=== PATIENT | female | born 1990 | race Caucasian/White ===

== ENCOUNTER 2017-07-13 14:49 | Emergency (ER) | payer OTHER ==
[~2017-07-13] VITALS: Ht 162.6 cm; Wt 53.0 kg
[2017-07-13 14:51] VITALS: BP 145/81; PULSE 75; RESP 18; TEMP 98; O2SAT 100
--- NOTE | 2017-07-13 15:19 | PD ---
Physical Exam Date Seen by Provider: Jul 13, 2017 Time Seen by Provider: 15:16 Narrative 26-year-old female with history of migraine presents to emergency Department with migraine since this morning. Patient sees a headache specialist and shawn is currently on verapamil and sumatriptan. Patient states she took her to sumatriptan 25 mg by mouth today without relief of her symptoms. Patient continues to be nauseous and having of pain of 8 out of 10. She denies any specific neurological symptoms. She denies visual changes. She denies . Last menstrual period was June 29. She is allergic to penicillin. Vital signs reviewed. Patient awaiting bed placement. Data Data Last Documented VS Vital Signs Date Time Temp Pulse Resp B/P (MAP) Pulse Ox O2 Delivery O2 Flow Rate FiO2 07/13/17 14:51 98.0 75 18 145/81 (102) 100 MDM Medical Record Reviewed: Yes Supervised Visit with TRICIA: Yes Condition: Stable Ken Weldon Jul 13, 2017 15:19
[2017-07-13] MEDS ORDERED: VITA10002 PO (15:42)
--- NOTE | 2017-07-13 15:42 | PD ---
Physical Exam Date Seen by Provider: Jul 13, 2017 Narrative Patient presents with a headache. Patient is sitting on the stretcher smiling as a nurse's starting her IV. She is in no distress. Data Data Last Documented VS Vital Signs Date Time Temp Pulse Resp B/P (MAP) Pulse Ox O2 Delivery O2 Flow Rate FiO2 07/13/17 14:51 98.0 75 18 145/81 (102) 100 Orders Orders Sumatriptan Inj (Imitrex Inj) (07/13/17 15:45) Sodium Chlor 0.9% 1000 Ml Inj (Ns 1000 M (07/13/17 15:45) Ondansetron Inj (Zofran Inj) (07/13/17 15:45) Iv Access Insert/Monitor (07/13/17 15:35) MDM Supervised Visit with TRICIA: Yes Narrative Course I, Dr. León, have reviewed the advance practice practitioner's documentation and am in agreement, met with the patient face to face, made the diagnosis, and the medical decision making was done by me. *My assessment and Findings: Well-appearing female with the chief complaint of a headache. Please see Shayna Willard's note for final diagnosis and disposition. Scripts No Active Prescriptions or Reported Meds Condition: Michelle Martin MD Jul 13, 2017 15:42
[2017-07-13] MEDS ORDERED: SUMAtriptan INJ 6 MG/0.5 ML VIAL SQ ONE (15:45)
[2017-07-13] MEDS ORDERED: ONDANSETRON HCL 4 MG/2 ML VIAL IV PUSH ONE (15:45)
[2017-07-13] MEDS ORDERED: SODIUM CHLOR 0.9% 1000 ML INJ 1,000 ML IV ONE (15:45)
--- NOTE | 2017-07-13 16:06 | PD ---
HPI Chief Complaint: Headache Time Seen by Provider: 15:27 Travel History International Travel<30 days: No Contact w/Intl Traveler<30days: No Traveled to known affect area: No History of Present Illness HPI Patient is a 26-year-old female presenting to the emergency evaluation of a migraine. Patient has history of chronic migraines and currently takes verapamil and sumatriptan as needed. She also reports taking 3-4000 mg of acetaminophen to abort the headache. She reports mild nausea, mild photophobia. She states she had dull headache yesterday but woke up at 5 AM this morning with increased pain over the left frontal and left eye. Headache presentation is consistent with her headaches in the past. She took 25 mg of sumatriptan at 5 AM and then again at 12:30. She currently rates the pain a 7 out of 10 and states it's throbbing. PFSH Past Medical History Migraines: Yes ?: Not Past Surgical History Surgical History: No Previous Surgery Social History Alcohol Use: Yes (1 beer daily) Tobacco Use: No Substance Use: No Allergies-Medications (Allergen,Severity, Reaction): Coded Allergies: Penicillins (Verified Allergy, Unknown, rash, 07/13/17) Reported Meds & Prescriptions Reported Meds & Active Scripts Active Reported Vitamin B-12 (Cyanocobalamin) 1,000 Mcg Tab 1,000 Mcg PO DAILY Review of Systems Except as stated in HPI: all other systems reviewed are Neg General / Constitutional: No: Fever, Chills Eyes: Positive: Photophobia, No: Blurred Vision HENT: Positive: Headaches Cardiovascular: No: Chest Pain or Discomfort Respiratory: No: Shortness of Breath Gastrointestinal: Positive: Nausea, No: Vomiting, Abdominal Pain Physical Exam Narrative GENERAL: Well-developed, well-nourished, alert female. Resting comfortably in no acute distress. SKIN: Warm and dry. HEAD: Atraumatic. Normocephalic. EYES: Pupils equal and round. No scleral icterus. No injection or drainage. Extraocular movements are intact. ENT: No nasal bleeding or discharge. Mucous membranes pink and moist. NECK: Trachea midline. No JVD. CARDIOVASCULAR: Regular rate and rhythm. RESPIRATORY: No accessory muscle use. Clear to auscultation. Breath sounds equal bilaterally. GASTROINTESTINAL: Abdomen soft, non-tender, nondistended. Hepatic and splenic margins not palpable. MUSCULOSKELETAL: Extremities without clubbing, cyanosis, or edema. No obvious deformities. NEUROLOGICAL: Awake and alert. No obvious cranial nerve deficits. Motor grossly within normal limits. Five out of 5 muscle strength in the arms and legs. Normal speech. PSYCHIATRIC: Appropriate mood and affect; insight and judgment normal. Data Data Last Documented VS Vital Signs Date Time Temp Pulse Resp B/P (MAP) Pulse Ox O2 Delivery O2 Flow Rate FiO2 07/13/17 15:41 18 Room Air 07/13/17 14:51 98.0 75 145/81 (102) 100 Orders Orders Sumatriptan Inj (Imitrex Inj) (07/13/17 15:45) Sodium Chlor 0.9% 1000 Ml Inj (Ns 1000 M (07/13/17 15:45) Ondansetron Inj (Zofran Inj) (07/13/17 15:45) Iv Access Insert/Monitor (07/13/17 15:35) MDM Medical Decision Making Medical Screen Exam Complete: Yes Emergency Medical Condition: Yes Interpretation(s) Vital Signs Date Time Temp Pulse Resp B/P (MAP) Pulse Ox O2 Delivery O2 Flow Rate FiO2 07/13/17 15:41 18 Room Air 07/13/17 14:51 98.0 75 18 145/81 (102) 100 Differential Diagnosis Migraine versus cluster headache versus tension versus other Narrative Course Patient is a 26-year-old female who presented for evaluation of a migraine that was unable to be aborted by her normal therapy. Patient is on a very low-dose of sumatriptan. She is neurologically intact with no focal deficits noted. Patient will be given subcutaneous sumatriptan and now, IV fluids, IV Zofran. Will reassess. 1650- patient was reassessed, her headache has improved. She did longer feels nauseated. Patient will be discharged home, she is encouraged to follow-up with her neurologist as scheduled as well as her primary doctor. Patient was advised to return to emergency department for any new or worsening symptoms. She was encouraged to take sumatriptan at the onset of her headache instead of waiting for better results. Patient verbalized understanding. Patient is stable for discharge. Diagnosis Primary Impression: Migraine Qualified Codes: G43.909 - Migraine, unspecified, not intractable, without status migrainosus Referrals: Neurologist Primary Care Physician Patient Instructions: General Instructions, Migraine Headache (ED), Sumatriptan (By mouth) Additional Instructions: Follow-up with your primary doctor Follow-up with your neurologist Take sumatriptan at the onset of your headache for best results Return to emergency department for any new or worsening symptoms Med/Other Pt SpecificInfo: Prescription(s) given, No Change to Meds Scripts Ondansetron Odt (Zofran Odt) 4 Mg Tab 4 MG SL Q6HR Y for Nausea/Vomiting, #30 TAB 0 Refills Prov: Shayna Hernández 07/13/17 Disposition: 01 DISCHARGE HOME Condition: Stable Shayna Hernández Jul 13, 2017 16:06
[2017-07-13 16:45] VITALS: RESP 16
[2017-07-13] MEDS ORDERED: ZOFR4TAB3 SL (16:56)
[2017-07-13 17:06] VITALS: BP 110/78; TEMP 97.8
== END 2017-07-13 17:07 | disposition home or self-care (01) ==
LOC: NEPD 14:49
DX: G43.909 Migraine, unspecified, not intractable, without status migrainosus (principal); Z88.0 Allergy status to penicillin
CPT/HCPCS: 96361; 96372; 96374; 99284; J2405; J3030; J7030